=== PATIENT | female | born 1985 | race Caucasian/White ===

== ENCOUNTER 2022-01-12 08:50 | Emergency (ER) | payer OTHER ==
[~2022-01-12] VITALS: Ht 162.6 cm; Wt 75.3 kg
[2022-01-12 09:16] VITALS: BP 109/62
--- NOTE | 2022-01-12 09:30 | NUR ---
36 yo f bib c/o sudden 10/10 lower abdomen pain x 1 hour. pt ate oatmeal and eggs prior to symptoms onset. denies n/v/d. no meds taken. abdomen is tender to touch and patient is guarding. pain is sharp like and worse on the L side upon palpation. bowel sounds active. pt A&OX4 with even and steady gait. pt denies any CP/SOB, fever/chills, N/V. lmp: nov 2021 pmh: none meds: none nka
[2022-01-12] MEDS ORDERED: MORPHINE SULFATE 4 MG/ML SYR IVP ONE (09:40)
[2022-01-12] MEDS ORDERED: ONDANSETRON 4 MG/2 ML VIAL IVP ONE (09:40)
--- NOTE | 2022-01-12 09:40 | NUR ---
18G IV ESTABLISHED IN R AC. SALINE LOCK AT THIS TIME.
--- NOTE | 2022-01-12 09:48 | NUR ---
BLOOD AND URINE WALKED OVER TO LAB AND HANDED TO [facility]
--- NOTE | 2022-01-12 09:54 | NUR ---
PT TAKEN TO CT VIA W/C Addendum: 01/12/22 at 1004 by [email or web address] PT TAKEN VIA [facility]
[2022-01-12 10:02] LABS: APPEARANCE,URINE SL CLOUDY (CLEAR); BILIRUBIN,URINE NEGATIVE (NEGATIVE); BLOOD, URINE NEGATIVE (NEGATIVE); COLOR,URINE YELLOW (YELLOW); LEUKOCYTE ESTERASE ,URINE NEGATIVE (NEGATIVE); NITRITE, URINE NEGATIVE (NEGATIVE); UGLUCOSE NEGATIVE (NEGATIVE)
--- NOTE | 2022-01-12 10:04 | NUR ---
PT RETURNED TO BED [address] V[address] [facility]
[2022-01-12 10:19] LABS: BASOPHILS # (AUTO) 0.1 K/uL (0.00-0.22); BASOPHILS % (AUTO) 0.7 % (0.0-2.0); EOSINOPHILS # (AUTO) 0.2 K/uL (0-0.4); EOSINOPHILS % (AUTO) 1.8 % (0.0-4.0); HEMATOCRIT 36.9 % (36-48); HEMOGLOBIN 12.2 g/dL (12.0-16.0); LYMPHOCYTES # (AUTO) 2.5 K/uL (2.5-16.5); LYMPHOCYTES % (AUTO) 27.4 % (20.5-51.1); MEAN CORPUSCULAR HEMOGLOBIN 26 pg (27-31); MEAN CORPUSCULAR HGB CONC 33 g/dL (33-37); MEAN CORPUSCULAR VOLUME 80.1 fL (80-94); MONOCYTES # (AUTO) 0.5 K/uL (0.8-1.0); MONOCYTES % (AUTO) 5.9 % (1.7-9.3); NEUTROPHILS # (AUTO) 5.8 K/uL (1.8-7.7); NEUTROPHILS % (AUTO) 64.2 % (42.2-75.2); PLATELET COUNT (AUTO) 232 K/uL (140-450); RED BLOOD CELL COUNT(AUTO) 4.61 MIL/uL (4.20-5.40); RED CELL DISTRIBUTION WIDTH 14.2 % (11.6-13.7); WHITE BLOOD COUNT (AUTO) 9.1 K/uL (4.8-10.8)
[2022-01-12 10:20] LABS: ALBUMIN 3.2 g/dL (3.4-5.0); ANION GAP 13.1 (8-16); CARBON DIOXIDE 24.2 mmol/L (21-32); CREATININE 0.7 mg/dL (0.6-1.3); POTASSIUM 3.3 mmol/L (3.5-5.1); TOTAL BILIRUBIN 0.3 mg/dL (0.0-1.0)
--- NOTE | 2022-01-12 11:18 | NUR ---
Pt report given to TRICE ORONA. Transfer of care at this time.
--- NOTE | 2022-01-12 11:18 | NUR ---
Report received from TRICE Dumont. Transfer of care at this time.
--- NOTE | 2022-01-12 11:54 | NUR ---
PT AMBULATED TO RESTROOM WITH STEADTY GAIT
--- NOTE | 2022-01-12 11:59 | NUR ---
PT STATED SHE STARTED HER PERIOD, PT PROVIDED WITH SANITARY PADS.
--- NOTE | 2022-01-12 12:02 | NUR ---
PT BACK FROM RESTROOM, PLACED BACK ON THE VS MONITOR.
--- NOTE | 2022-01-12 13:00 | NUR ---
PT IS SLEEPING COMFORTABLE IN BED, PT IS EASILY AROUSABLE AND A&OX4. PT IS ON MONITOR WITH VSS. BED IS LOCKED AND LOW, CALL LIGHT IS WITHIN REACH.
--- NOTE | 2022-01-12 13:52 | NUR ---
US AT BEDSIDE
[2022-01-12] MEDS ORDERED: ACET-8386 PO ×2 (14:57→15:21)
[2022-01-12 15:30] VITALS: BP 100/67
--- NOTE | 2022-01-12 15:30 | NUR ---
Patient discharged with v/s stable. Written and verbal after care instructions given and explained. Patient alert, oriented and verbalized understanding of instructions. Ambulatory with steady gait. All questions addressed prior to discharge. ID band removed. Patient advised to follow up with PMD. Rx of NORCO 5-325 given. Patient educated on indication of medication including possible reaction and side effects. Opportunity to ask questions provided and answered.
--- NOTE | 2022-01-12 17:20 | NUR ---
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
== END 2022-01-12 15:30 | disposition home or self-care (01) ==
LOC: MED 08:50
DX: R10.2 Pelvic and perineal pain (principal); Z79.899 Other long term (current) drug therapy; Z98.890 Other specified postprocedural states
CPT/HCPCS: 36415; 74176; 76856; 80053; 81025; 83690; 85025; 93976; 96374; 96375; 99285; J2270; J2405; Q0092